=== PATIENT | female | born 2000 | race Asian ===

== ENCOUNTER 2019-04-08 19:19 | Observation (INO) | payer OTHER ==
[~2019-04-08] VITALS: Ht 160 cm; Wt 54.4 kg
[2019-04-08 21:04] LABS: BASOPHILS % 0.2 % (0.0-1.0); EOSINOPHILS # (AUTO) 0.1 (0.0-0.4); EOSINOPHILS % 0.7 % (0.0-6.0); HEMATOCRIT 35.4 % (34.2-44.1); LYMPHOCYTES # (AUTO) 2.7 (1.0-3.2); LYMPHOCYTES % 25.9 % (18.0-39.1); MEAN CORPUSCULAR HEMOGLOBIN 22.7 pg (28-32); MEAN CORPUSCULAR HGB CONC 31.1 g/dL (31-35); MONOCYTES # (AUTO) 0.9 (0.2-0.8); MONOCYTES % 8.4 % (4.4-11.3); NEUTROPHILS # (AUTO) 6.7 (2.1-6.9); NEUTROPHILS % 64.6 % (38.7-80.0); PLATELET COUNT 332 x10e3/uL (140-360); RED BLOOD COUNT 4.85 x10e6/uL (3.6-5.1); RED CELL DISTRIBUTION WIDTH 18.1 % (11.7-14.4)
[2019-04-08 21:23] LABS: ALANINE AMINOTRANSFERASE 9 IU/L (0-55); ALBUMIN 4.2 g/dL (3.5-5.0); ALKALINE PHOSPHATASE 52 IU/L (40-150); ANION GAP 12.3 mmol/L (8-16); BLOOD UREA NITROGEN 9 mg/dL (7-26); BUN/CREATININE RATIO 13 (6-25); CALCIUM 10.1 mg/dL (8.4-10.2); CARBON DIOXIDE 24 mmol/L (22-29); CHLORIDE 104 mmol/L (98-107); CREATININE, SERUM 0.71 mg/dL (0.57-1.11); EST GLOMERULAR FILTRATION RATE > 60 ML/MIN (60-); GLUCOSE 89 mg/dL (74-118); POTASSIUM 3.3 mmol/L (3.5-5.1); SODIUM 137 mmol/L (136-145)
[2019-04-08] MEDS ORDERED: IBUPROFEN 200 MG TAB PO PRN (21:45)
[2019-04-08] MEDS ORDERED: ONDANSETRON HCL INJ 2MG/ML 2ML 2 MG/ML VIAL IV PRN (21:45)
[2019-04-08] MEDS ORDERED: DIPHENHYDRAMINE HCL INJ 50 MG/ML VIAL IV PRN (21:45)
[2019-04-08] MEDS ORDERED: ACETAMINOPHEN 325 MG TAB PO PRN (21:45)
[2019-04-08] MEDS ORDERED: IBUPROFEN 400 MG TAB PO PRN (22:00)
[2019-04-09] VITALS (8 sets, daily range): BP systolic 98–135; BP diastolic 52–69
--- NOTE | 2019-04-09 00:36 | NUR ---
Pt received from ER. Pt A&O and in no apparent distress. Pt family at bedside. Pt room air and tele. All safety measures ensured, bed alarm on, and pt call olea near.
[2019-04-09] MEDS: HYDROCODONE/APAP 7.5MG-325MG 1 EA TAB PO PRN ×2 (01:18→21:47)
[2019-04-09] MEDS: ZOLPIDEM TARTRATE 5 MG TAB PO PRN ×2 (01:18→21:47)
--- NOTE | 2019-04-09 07:22 | NUR ---
Walking rounds/bedside report complete. Pt resting in bed and in no distress. All safety measures ensured.
[2019-04-09] MEDS ORDERED: POTASSIUM CHLORIDE 20 MEQ TAB CR PO NR (08:34)
[2019-04-09] MEDS ORDERED: HYDRALAZINE HCL 20 MG/ML VIAL IV PRN (08:45)
--- NOTE | 2019-04-09 13:06 | Diagnostic Imaging Report ---
History: Fell when she was 6 years old, low back pain and right leg pain Comparison studies: None Technique: Sagittal T1, T2 and IR, axial T2 with and without fat sat and axial spin density oblique Intravenous contrast: None Findings: Number of lumbar vertebral bodies: 5 . Soft tissues: No T2 hyperintense inflammatory changes . Paraspinal muscles: No signal abnormalities. Well-preserved. No atrophic changes . Lower thoracic cord: Normal in size and signal. The tip of the conus is at L1-L2. Cauda equina:No masses. No arachnoiditis . Vertebrae: Normal in height and signal intensity. No fractures, infection or neoplasm. Degenerative changes: L1-L2 No abnormalities. L2-L3: No abnormalities. L3-L4: No abnormalities. L4-L5: Disc degeneration with loss of T2 signal. Diffuse disc bulge with superimposed central disc protrusion results in no significant canal stenosis or foraminal narrowing L5-S1 axial disc degeneration with loss of T2 signal: No abnormalities. Additional abnormalities: Partially visualized left adnexal 3.5 cm cyst . IMPRESSION: Disc degeneration, mild diffuse disc bulge with superimposed central disc protrusion at L5-S1 without significant canal stenosis or foraminal narrowing. The remaining canal and foramina are patent. Left adnexal 3.5 cm cyst, most likely physiologic, if indicated follow-up pelvic ultrasound in 3 months. Signed by: DR Sukhdev Vela M.D. on 04/09/2019 1:03 PM
--- NOTE | 2019-04-09 13:45 | NUR ---
Visit made by the Spiritual Care Department Pastoral Visitor, Tanika Lopes. Pt sleeping soundly and no family present. Pastoral Visitor left a card describing availability of store shopper and instructions on how to contact a store shopper. COTY RUTHERFORD Category Consultant Spiritual Care Department O: [phone] Pager: [phone] ([phone] number calling from)
[2019-04-09] MEDS: FAMOTIDINE 20 MG TAB PO SCH (16:10)
--- NOTE | 2019-04-09 18:17 | NUR ---
post void residual is 23 ml, informed Clau RISK CONTROL ANALYST , no new orders
--- NOTE | 2019-04-09 19:16 | NUR ---
Report received and walking rounds complete. Pt resting in bed and in no apparent distress. Pt family at bedside. All safety measures ensured and pt call olea near. Pt complains of lower back pain but stated she didn't want any pain medication right now.
--- NOTE | 2019-04-09 19:50 | NUR ---
Dr. Hadley called and stated that he would not be in to see pt tonight but reviewed the MRI and the pt does not need surgery. stated he will contact Dr. Marroquin to speak to him regarding pt and determine from there if any other treatment needed and if pt can be discharged.
--- NOTE | 2019-04-09 20:12 | NUR ---
Spoke with pt and pt family to explain that Dr. Hadley won't be into see the pt but he did review the MRI and stated she does not need surgery. The pt had further questions but I explained to her that Dr. Marroquin staff will be in to see her tomorrow and explain further and address questions she has. Pt verbalized understanding.
[2019-04-10] VITALS: BP 103/59
[2019-04-10 04:00] VITALS: BP 102/72
[2019-04-10 04:08] LABS: BASOPHILS % 0.1 % (0.0-1.0); EOSINOPHILS # (AUTO) 0.1 (0.0-0.4); EOSINOPHILS % 1.1 % (0.0-6.0); HEMATOCRIT 31.9 % (34.2-44.1); HEMOGLOBIN 9.6 g/dL (12.0-16.0); LYMPHOCYTES # (AUTO) 2.5 (1.0-3.2); MEAN CORPUSCULAR HEMOGLOBIN 22.9 pg (28-32); MEAN CORPUSCULAR HGB CONC 30.1 g/dL (31-35); MONOCYTES # (AUTO) 0.7 (0.2-0.8); MONOCYTES % 9.4 % (4.4-11.3); NEUTROPHILS # (AUTO) 4.5 (2.1-6.9); NEUTROPHILS % 57.3 % (38.7-80.0); PLATELET COUNT 157 x10e3/uL (140-360); RED BLOOD COUNT 4.19 x10e6/uL (3.6-5.1); RED CELL DISTRIBUTION WIDTH 18.1 % (11.7-14.4)
[2019-04-10 04:16] LABS: MEAN CORPUSCULAR VOLUME 76.1 fL (81-99)
[2019-04-10 04:25] LABS: % IRON SATURATION 5 % (15-50); ANION GAP 9.3 mmol/L (8-16); BLOOD UREA NITROGEN 7 mg/dL (7-26); BUN/CREATININE RATIO 13 (6-25); CARBON DIOXIDE 21 mmol/L (22-29); CHLORIDE 113 mmol/L (98-107); CREATININE, SERUM 0.53 mg/dL (0.57-1.11); EST GLOMERULAR FILTRATION RATE > 60 ML/MIN (60-); GLUCOSE 70 mg/dL (74-118); IRON 16 ug/dL (50-170); POTASSIUM 3.3 mmol/L (3.5-5.1); SODIUM 140 mmol/L (136-145); TOTAL IRON BINDING CAPACITY 336 ug/dL (261-478); TRANSFERRIN 240 mg/dL (180-382)
[2019-04-10 04:27] LABS: CALCIUM 7.3 mg/dL (8.4-10.2)
[2019-04-10 04:47] LABS: FERRITIN 6.39 ng/mL (4.63-204.00)
[2019-04-10 05:25] LABS: FOLATE 7.3 ng/mL (7.0-15.4)
--- NOTE | 2019-04-10 06:20 | NUR ---
Asked pt if she has urinated and pt stated that she hasn't been able to. Explained to pt that I need to bladder scan her and that if she has urine in her bladder she may need to have a catheter placed. Pt bladder scan 183cc. Pt has no complaints of abdominal pain. Pt stated she can only urinate in the mornings and will try to urinate. Pt voided 200 cc and urine specimen submitted for urine culture.
--- NOTE | 2019-04-10 07:15 | NUR ---
Bedside report given and walking rounds complete. Pt resting in bed and in no apparent distress. All safety measured and pt call olea near.
[2019-04-10 07:34] VITALS: BP 107/58
[2019-04-10] MEDS: FAMOTIDINE 20 MG TAB PO SCH (07:55)
[2019-04-10] MEDS ORDERED: POTASSIUM CHLORIDE 20 MEQ TAB CR PO NR (08:39)
[2019-04-10] MEDS ORDERED: CYCLOBENZAPRINE5 MG PO (08:42)
[2019-04-10] MEDS ORDERED: ULTRAM 50MG50 MG PO (08:42)
[2019-04-10] MEDS ORDERED: ASCORBIC ACID500 MG PO (08:43)
[2019-04-10] MEDS ORDERED: FERROUS SULFAT325 M1 PO (08:43)
[2019-04-10] MEDS ORDERED: DOCUSATE SODIU100 MG PO (08:43)
[2019-04-10] MEDS ORDERED: ONDANSETRON HCL 4 MG ORAL DISINTEGRATING TAB PO PRN (09:00)
--- NOTE | 2019-04-10 10:23 | NUR ---
Dr Marroquin had rounds , explained patent about test results and f/up as well. Patient discharged home, Alert with no distress, denies any SOB, Prescription given and she verbalized understanding about drugs. IV canula removed with tip intact, no ss of infiltration noted. F/up instruction given to [facility] [id number] [facility] [id number], thru ER with MRI disc. MRI disc given. Her dad to knot picker cloth patient, transported via wheelchair to [facility]
--- NOTE | 2019-04-11 05:27 | Discharge Summary ---
ADMISSION DIAGNOSES: Lumbar radiculitis, history of anemia, history of hypotension and hypokalemia. DISCHARGE DIAGNOSES: Lumbar radiculitis, history of anemia, history of hypotension and hypokalemia, degenerative disk disease, disk protrusion at L5-S1 without significant canal stenosis or foraminal narrowing, left adnexal cyst. PAST MEDICAL HISTORY: The patient has a history of anemia and hypotension. PAST SURGICAL HISTORY: None. FAMILY HISTORY: Both of the patient's grandfather have diabetes. The patient's grandmother has cancer and a stroke. SOCIAL HISTORY: Noncontributory. HOSPITAL COURSE: A 19-year-old female, complains of intermittent dull back ache since she was 6 years old. 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 She denies motor vehicle accident or fall from tall height. On the day prior to admission, the pain began to become sharp and unbearable. The pain radiates down her right lower extremity with numbness and tingling and associated weakness. Changing positions worsens the pain. On admission, the patient had an MRI of the L-spine that showed disk degeneration and mild diffuse disk bulge with superimposed central disk protrusion at L5-S1 without significant canal stenosis or foraminal narrowing. Neurosurgery was consulted, who said the patient did not need surgery. She can follow up with physical therapy and possible CAN in outpatient. The patient was advised of findings and instructed where to follow up for CAN. The patient understands discharge instructions and agrees to plan. She was given a prescription for iron, vitamin C, tramadol, and Flexeril. The patient is feeling better and ready to get a lumbar CAN. Vital signs stable and the patient afebrile. Dictated by Clau Fofana NP Philip Marroquin MD AMY/MODL /[id number]
== END 2019-04-10 10:22 | disposition home or self-care (01) ==
LOC: ER 19:19 → ERHOLD 22:45 → IMCU 04-09 00:50
PROVIDERS: ADMIT Internal Medicine; ATTEND Internal Medicine
DX: M54.16 Radiculopathy, lumbar region (principal); D64.9 Anemia, unspecified; M51.36 Other intervertebral disc degeneration, lumbar region; M48.061 Spinal stenosis, lumbar region without neurogenic claudication; E87.6 Hypokalemia
CPT/HCPCS: 36415; 72148; 80048; 80053; 82607; 82728; 82746; 83540; 84466; 84702; 85025; 87086; 99284; G0378